=== PATIENT | male | born 1990 | race Caucasian/White ===

== ENCOUNTER 2024-09-03 12:44 | Emergency (ER) | payer SELFPAY ==
[2024-09-03] MEDS: Tetracaine HCl/PF 0.5% 4 ML Bottle EYEBOTH ONE (13:33)
== END 2024-09-03 14:17 | disposition home or self-care (01) ==
LOC: MW.ED 12:44
DX: S05.01XA Injury of conjunctiva and corneal abrasion without foreign body, right eye, initial encounter (principal); Z75.8 Other problems related to medical facilities and other health care; X58.XXXA Exposure to other specified factors, initial encounter
CPT/HCPCS: 99283; J3490